=== PATIENT | female | born 1960 | race Caucasian/White ===

== ENCOUNTER 2018-09-16 09:39 | Day surgery (SDC) | payer BC ==
[~2018-09-16 09:39] MED LIST: Acetaminophen TAB* 325 MG PO PRN; Buffered Lidocaine 0.9% SYRIN* 5 ML/SYR SYRINGE INTRADERM ONE
[2018-09-16] MEDS ORDERED: Midazolam* 1 MG/ML 2 ML VIAL (2 MG) ONE ×2 (11:40→11:50)
[2018-09-16] MEDS ORDERED: fentaNYL* 50 MCG/ML 2 ML VIAL (100 MCG VIAL) ONE (11:58)
[2018-09-16 12:50] VITALS: BP 149/105
[2018-09-16] MEDS ORDERED: Lidocaine 2% EPI 1:200000 MPF*10-20 ML VIAL ONE (15:10)
[2018-09-16] MEDS ORDERED: Povidone Iodine 5% OPTH* 30 ML BTL ONE (15:10)
[2018-09-16] MEDS ORDERED: Lidocaine 1%* 5 ML VIAL ONE (15:10)
[2018-09-16] MEDS ORDERED: Ketorolac 0.5% OPHTH (NF) 0.5 % 5 ML BTL ONE (15:10)
[2018-09-16] MEDS ORDERED: acetaZOLAMIDE TAB* 250 MG ONE (15:10)
[2018-09-16] MEDS ORDERED: Cyclopentolate 1% OPTH.SOL* 2 ML BTL ONE (15:10)
[2018-09-16] MEDS ORDERED: Phenylephrine 2.5% OPTH.SOL* 2 ML BTL ONE (15:10)
[2018-09-16] MEDS ORDERED: Neomycin/Polymy/Dex OPTH.SUSP* MAXITROL 0.1% 5 ML ONE (15:10)
[2018-09-16] MEDS ORDERED: Proparacaine 0.5% OPHTH.SOL* 15 ML BTL ONE (15:10)
--- NOTE | 2018-09-16 20:56 | OP ---
DATE OF OPERATION: 09/16/18 - [facility] DATE OF : 62 SURGEON: Jeremy Delgado M.D. PREOPERATIVE DIAGNOSIS: Cataract, left eye. POSTOPERATIVE DIAGNOSIS: Cataract, left eye. OPERATIVE PROCEDURE: Extracapsular cataract extraction with intraocular lens implant, left eye. DESCRIPTION OF PROCEDURE: The patient was brought to the operating room after being given 1/2% Alcaine with epinephrine drops in the preoperative area. The eye was prepped and draped in the usual sterile fashion. Sterile drape and eyelid speculum were placed. Again, topical 1/2% Alcaine with epinephrine was given. A paracentesis incision was made at the 3 o'clock position with the No.75 blade. Clear cornea incision 2.2 x 2.2-mm was created at the 6 o'clock position starting at the anterior limbus using the 2.2-mm keratome. The anterior chamber was irrigated with 0.4 mL of 1% non-preservative intracameral lidocaine and filled with DisCoVisc. A capsulorrhexis was completed using the cystotome and the Utrata forceps. Hydrodissection was performed with balanced salt solution. The lens nucleus was removed with the Phacoemulsification handpiece without incident. Cortex was removed with the irrigation-aspiration handpiece. The capsular bag was re-inflated using DisCoVisc and an [id number] implant was inserted with the shooter. Pupil was very small, so a Malyugin ring was used to dilate the pupil prior to capsulorrhexis and removed after insertion of the lens. The irrigation-aspiration handpiece was used to remove all residual DisCoVisc. The eye was refilled with balanced salt solution and the wound checked and found to be watertight. Topical Maxitrol drops were given. Indication for complex cataract surgery: Pupil abnormalities requiring pupil dilation device. [id number]/[facility] #: [id number] MTDMehran
== END 2018-09-16 12:19 | disposition home or self-care (01) ==
LOC: OREAST 09:39
PROVIDERS: ATTEND Specialist
DX: H25.812 Combined forms of age-related cataract, left eye (principal); H21.562 Pupillary abnormality, left eye; Z85.820 Personal history of malignant melanoma of skin; L71.8 Other rosacea; M18.11 Unilateral primary osteoarthritis of first carpometacarpal joint, right hand; M65.4 Radial styloid tenosynovitis [de Quervain]
CPT/HCPCS: A9270-GY; J2250; J3010; V2632

== ENCOUNTER 2018-09-24 08:03 | Day surgery (SDC) | payer BC ==
[~2018-09-24 08:03] MED LIST changes: -Acetaminophen TAB* 325 MG PO PRN; +Dexamethasone IV* 4 MG/ML 1 ML (4 MG) IV SLOW PU ONE; +Dexamethasone IV* 4 MG/ML 1 ML (4 MG) ONE; +Famotidine IV* 10 MG/ML 2 ML (20 mg) IV ONE; +Famotidine IV* 10 MG/ML 2 ML (20 mg) ONE; +Lactated Ringers 1000 ML Bag* 1,000 ML IV SCH
[2018-09-24] MEDS ORDERED: Clindamycin 900 MG/D5W BAG(*) 900 MG/50 ML BAG IVPB ONE (08:07)
[2018-09-24] MEDS ORDERED: Midazolam* 1 MG/ML 2 ML VIAL (2 MG) ONE (09:04)
[2018-09-24] MEDS ORDERED: Propofol* 10 MG/ML 20 ML BTL ONE (09:04)
[2018-09-24] MEDS ORDERED: fentaNYL* 50 MCG/ML 2 ML VIAL (100 MCG VIAL) ONE ×4 (09:04→13:14)
[2018-09-24] MEDS ORDERED: Lidocaine 2% PF * 5 ML VIAL ONE (09:04)
[2018-09-24] MEDS ORDERED: Bupivacaine 0.25% SDV PF* 10 ML VIAL INJ ONE (09:08)
[2018-09-24] MEDS ORDERED: KETAMINE HCL* 50 MG/ML 10 ML VIAL ONE (09:27)
[2018-09-24] MEDS ORDERED: Ondansetron INJ* 2 MG/ML VIAL ONE ×2 (10:36→12:35)
[2018-09-24] MEDS ORDERED: Naloxone* 0.4 MG/ML 1 ML VIAL IV PRN (11:16)
[2018-09-24] MEDS ORDERED: fentaNYL* 50 MCG/ML 2 ML VIAL (100 MCG VIAL) IV PRN (11:16)
[2018-09-24] MEDS ORDERED: PROCHLORPERAZINE INJ 5 MG/ML 2 ML VIAL IV PRN (11:16)
[2018-09-24] MEDS ORDERED: HYDROcodone/ACETAMIN 5-325 MG* 1 TAB PO PRN (11:16)
[2018-09-24] MEDS ORDERED: oxyCODONE/Acetamin 5/325 MG* TAB PO PRN (11:16)
[2018-09-24] MEDS ORDERED: HYDROcodone/ACETAMIN 5-325 MG* 1 TAB ONE (11:23)
[2018-09-24 12:41] VITALS: BP 156/100
[2018-09-24] MEDS ORDERED: Metoprolol Tartrate IV* 1 MG/ML 5 ML VIAL ONE (13:40)
--- NOTE | 2018-09-24 15:08 | OP ---
DATE OF OPERATION: 09/24/18 [facility] DATE OF : 62. SURGEON: Simone Perry MD. JAVA SWING DEVELOPER: JOANNE Ordoñez. ANESTHESIOLOGIST: Dr. Mesa. ANESTHESIA: General. PRE-OP DIAGNOSES: 1. Right stage 3 basal joint arthroplasty. 2. Right de Quervain's disease. POST-OP DIAGNOSES: 1. Right stage 3 basal joint arthroplasty. 2. Right de Quervain's disease. OPERATIVE PROCEDURE: 1. Right thumb carpometacarpal arthroplasty with trapeziectomy. 2. Right distally based split flexor carpi radialis tendon transfer for thumb suspension and tendon interposition. 3. Right de Quervain's release. INDICATIONS: Cora has had progressive right thumb pain and radial-sided wrist pain for sometime. Findings were consistent with carpometacarpal arthritis, as well as de Quervain's disease. X-rays confirmed she has stage 3 arthritic changes in the basal joint. We had talked about risks and benefits. She had wanted to proceed with surgery. ESTIMATED BLOOD LOSS: 2 mL. COMPLICATIONS: None. FINDINGS: See above and below. DESCRIPTION OF PROCEDURE: Cora was seen in the preoperative holding area. The correct site, side, and procedure were identified. We came back to the operating room where the arm was prepped and draped in the usual fashion. A time-out was performed. The arm was exsanguinated with the Esmarch and the tourniquet was inflated to 250 mmHg. I went ahead and made a 1 to 2 cm transverse incision over the first dorsal compartment tendon just proximal to the radial styloid. Dissection was carried down and bluntly full- thickness flaps were raised off the tendon sheath. The tendon sheath was released off this dorsal margin and there was quite a bit of tenosynovitis. This was excised. There was a septum an accessory compartment. This was excised in its entirety. Once I had completed the release distally and proximally and all the tenosynovitis had been excised, I irrigated out the wound and the skin was closed with 4-0 Monocryl suture. I then made a 2 to 3 cm longitudinal incision over the dorsal radial thumb base. Dissection was carried down bluntly to preserve the traversing sensory nerves. The irregularity was mobilized and retracted out of the way with the Ragnell retractors. I then opened up a capsule and raised the periosteal flaps to expose the entirety of the trapezium. Once I had released the soft tissue around the margins, I went ahead and excised the trapezium in piecemeal fashion with the rongeur. Once the trapezium was excised in its entirety together with all of the synovitis and bony ossicles, I went ahead and made a bone tunnel using sequentially larger drill bits from the dorsal radial aspect of the thumb metacarpal base exiting out the volar ulnar portion of the articular surface adjacent to the second metacarpal base where the FCR tendon inserts. At this point, I irrigated everything out. I examined the scaphotrapezoid joint. This was looking good with minimal signs of arthritis. I next created a 1 cm transverse incision over the FCR tendon distally just proximal to the wrist flexion crease. The FCR tendon sheath was opened. I made a second 1 to 2 cm transverse incision proximally about 8 to 10 cm proximal to the first incision. The FCR tendon sheath was released along the course of the tendon under the skin. I then pulled the tendon up into distal wound and split it longitudinally using a 15-blade, a 26-gauge wire was passed into the tendon split. I used a Sharmin clamp to pull the 26-gauge wire from the distal wound to the proximal wound where half of the tendon was released at the musculotendinous junction. I then cleaned the muscular remnants of the proximal tendon and secured the proximal tendon with a 3-0 Ethibond suture to prevent fraying. Two 26-gauge wires were used to pass the tendon tail down into the thumb base wound. The tendon split was then continued all the way down to the insertion of the tendon at the base of the second metacarpal. Free end of the tendon was passed through the bone tunnel and moved back around the intact limb of the FCR tendon. Appropriate tension was set and the tendon transfer was secured with 3 [id number] 3-0 Ethibond sutures. The first sewed all 3 limbs of the tendon transfer together. The second 2 sewed intact limb to intact limb. Once the tendon transfer was completed and the thumb was nicely suspended, I rolled up the remainder of the tendon tail and secured it into a ball with a 3-0 Ethibond suture. The wound was irrigated out and then the tendon interposition was placed between the base of the metacarpal and the distal pole of the scaphoid. It did very nicely. I then irrigated out the wound again. The capsule was closed with 3-0 Vicryl suture. The skin for all the incisions was closed with 4-0 nylon suture and 0.25% Marcaine was infiltrated around all of the operative areas. Steri-Strips was placed over the de Quervain's wound. The wounds were dressed and a thumb spica splint was applied with the IP joint free. Tourniquet was deflated and the hand pinked up immediately and she was taken to the recovery room in stable condition. [id number]/[facility] #: [id number] MTDD
== END 2018-09-24 12:41 | disposition home or self-care (01) ==
LOC: OREAST 08:03
PROVIDERS: ATTEND Orthopaedic Surgery Hand Surgery
DX: M18.11 Unilateral primary osteoarthritis of first carpometacarpal joint, right hand (principal); M65.4 Radial styloid tenosynovitis [de Quervain]; I10 Essential (primary) hypertension; Z88.0 Allergy status to penicillin; Z85.828 Personal history of other malignant neoplasm of skin; Z88.8 Allergy status to other drugs, medicaments and biological substances
CPT/HCPCS: 88304; 88311; J1100; J2250; J2405; J2704; J3010; J3490

== ENCOUNTER 2019-12-22 09:47 | Day surgery (SDC) | payer BC ==
[~2019-12-22 09:47] MED LIST changes: -Buffered Lidocaine 0.9% SYRIN* 5 ML/SYR SYRINGE INTRADERM ONE; +Buffered Lidocaine 1% SYRIN* 1 ML/SYRINGE INTRADERM ONE; -Dexamethasone IV* 4 MG/ML 1 ML (4 MG) IV SLOW PU ONE; -Dexamethasone IV* 4 MG/ML 1 ML (4 MG) ONE; -Famotidine IV* 10 MG/ML 2 ML (20 mg) IV ONE; -Famotidine IV* 10 MG/ML 2 ML (20 mg) ONE; -Lactated Ringers 1000 ML Bag* 1,000 ML IV SCH
[2019-12-22] MEDS: Lactated Ringers 1000 ML Bag* 1,000 ML IV SCH ×2 (10:17→14:13)
[2019-12-22] MEDS ORDERED: fentaNYL* 50 MCG/ML 2 ML VIAL (100 MCG VIAL) ONE (11:44)
[2019-12-22] MEDS ORDERED: Midazolam* 1 MG/ML 2 ML VIAL (2 MG) ONE (11:44)
[2019-12-22] MEDS ORDERED: Lidocaine 2% PF * 5 ML VIAL ONE (12:36)
[2019-12-22] MEDS ORDERED: Propofol* 10 MG/ML 20 ML BTL ONE ×2 (12:36→13:02)
[2019-12-22] MEDS ORDERED: Metoclopramide IV* 5 MG/ML 2 ML VIAL ONE (12:44)
[2019-12-22] MEDS ORDERED: Ondansetron INJ* 2 MG/ML VIAL ONE (12:44)
[2019-12-22] MEDS ORDERED: Dexamethasone IV* 4 MG/ML 1 ML (4 MG) ONE (12:44)
[2019-12-22] MEDS ORDERED: Ketorolac INJ* 30 MG/ML 1 ML VIAL ONE (12:44)
[2019-12-22] MEDS ORDERED: Acetaminophen TAB* 325 MG PO PRN (13:17)
[2019-12-22] MEDS ORDERED: oxyCODONE TAB* 5 MG TAB PO PRN (13:17)
[2019-12-22] MEDS ORDERED: Naloxone* 0.4 MG/ML 1 ML VIAL IV PRN (13:17)
[2019-12-22] MEDS ORDERED: DiMENhydriNATE IV* 50 MG/ML VIAL IV PUSH PRN (13:17)
[2019-12-22] MEDS ORDERED: fentaNYL* 50 MCG/ML 2 ML VIAL (100 MCG VIAL) IV PRN (13:17)
[2019-12-22 14:44] VITALS: BP 154/89
--- NOTE | 2019-12-23 01:45 | OP ---
CC: Dr. Ele Wallace, [facility] * ATE OF OPERATION: 12/22/19 - [facility] DATE OF : 62 SURGEON: Andry Michaud MD ANESTHESIOLOGIST: Dr. Gomez. ANESTHESIA: General endotracheal anesthesia. PRE-OP DIAGNOSES: Postmenopausal bleeding, stenotic cervix. POST-OP DIAGNOSES: Postmenopausal bleeding, stenotic cervix. OPERATIVE PROCEDURE: Dilation hysteroscopy, curettage. ESTIMATED BLOOD LOSS: Minimal, less than 20 cc. SPECIMENS: Endometrial curettings, scant, consistent with OR findings. FLUIDS: Per Anesthesia. DRAINS: None. FINDINGS: Small retroverted uterus, midline cervix, stenotic cervix, atrophic- appearing endometrium throughout. No endometrial polyps were seen. No submucosal fibroids were seen. Both tubal ostia were visualized. COMPLICATIONS: None. COUNTS: Sponge, lap, and needle counts were correct x2. CONDITION: The patient was brought to recovery room awake, in stable condition. DESCRIPTION OF PROCEDURE: The patient was brought to the operating room and general anesthesia was found to be adequate. The patient was prepped and draped in the usual sterile fashion in the dorsal lithotomy position. Time-out was performed. Exam under anesthesia was performed with the above findings noted. A weighted speculum was placed in the vagina. The anterior lip of the cervix was grasped with a single-tooth tenaculum and the cervix was gently dilated using the graduated Carbajal dilators. The hysteroscope was introduced. Atrophic endometrium was noted throughout. Both tubal ostia were visualized. The hysteroscope was removed. Endometrial curettage was performed. Endometrial curettings were sent to Pathology. The single-tooth tenaculum was removed from the cervix. Excellent hemostasis was noted. All instruments were removed from the vagina. The patient tolerated the procedure well. Sponge, lap , and needle counts were correct x2 and the patient was brought to the recovery room awake and in stable condition. [id number]/[facility] #: [id number] [facility]
== END 2019-12-22 13:35 | disposition home or self-care (01) ==
LOC: OR 09:47
PROVIDERS: ATTEND Obstetrics & Gynecology
DX: N95.0 Postmenopausal bleeding (principal); D25.9 Leiomyoma of uterus, unspecified; N88.2 Stricture and stenosis of cervix uteri; K58.9 Irritable bowel syndrome, unspecified; F41.8 Other specified anxiety disorders; Z88.0 Allergy status to penicillin; Z88.8 Allergy status to other drugs, medicaments and biological substances; Z88.6 Allergy status to analgesic agent; Z88.1 Allergy status to other antibiotic agents; Z91.040 Latex allergy status
CPT/HCPCS: 88305; J1100; J1885; J2250; J2405; J2704; J2765; J3010